=== PATIENT | female | born 1965 | race Native Hawaiian/Other Pacific Islander ===

== ENCOUNTER 2022-09-06 13:57 | Emergency (ER) | payer BC ==
[~2022-09-06] VITALS: Ht 152.4 cm; Wt 101.2 kg
[2022-09-06 14:17] VITALS: TEMP 97.9
[2022-09-06 14:50] LABS: PLATELET COUNT 233 K/uL (152-353)
[2022-09-06 14:58] LABS: POTASSIUM 3.9 mmol/L (3.6-5.2)
[2022-09-06 15:07] LABS: PARTIAL THROMBOPLASTIN TIME 25.9 SECONDS (24.5-33.6)
[2022-09-06 16:56] VITALS: BP 130/72
== END 2022-09-06 16:56 | disposition home or self-care (01) ==
LOC: ED 13:57
PROVIDERS: Emergency Medicine
DX: I10 Essential (primary) hypertension (principal)
CPT/HCPCS: 80053; 81002; 84484; 85027; 85610; 85730; 99283